=== PATIENT | female | born 1960 | race Caucasian/White ===

== ENCOUNTER 2017-12-08 05:23 | Day surgery (SDC) | payer BC ==
[~2017-12-08] VITALS: Ht 154.9 cm; Wt 74.8 kg
[~2017-12-08 05:23] MED LIST: BENTYL10 MG PO; BENZONATATE200 MG PO; BUPROPION HCL; BUPROPION HCL150 M2 PO; CELEXA10 M1 PO; CIPRO500 MG PO; CYMBALTA60 MG PO; DULOXETINE HCL60 MG PO; ENDOCET 5-3251 EACH PO; FISH OIL 1,0001 EACH PO; FLUOXETINE HCL20 MG; HYCODAN SYRUP480 ML PO; HYDROCHLOROTHIA25 MG; KEFLEX500 MG PO; PREDNISONE10 MG PO; PRILOSEC OTC20 MG PO; PRILOSEC40 MG PO; PROTONIX40 MG PO; TOPROL XL50 MG PO; TRAMADOL HCL50 MG PO; TYLENOL WITH C1 EACH PO; VITAMIN D1000 INTUN PO; VITAMIN D31000 UNIT PO; WELLBUTRIN100 MG PO; ZITHROMAX Z-PA250 MG PO; ZOFRAN ODT4 MG PO; ZOFRAN4 MG PO
[2017-12-08 06:07] VITALS: BP 120/65
[2017-12-08 08:49] VITALS: BP 114/65
[2017-12-08 09:30] VITALS: BP 124/64
== END 2017-12-08 09:35 | disposition home or self-care (01) ==
LOC: SDC 05:23
PROC: 0UDB8ZX Extraction of Endometrium, Via Natural or Artificial Opening Endoscopic, Diagnostic (ICD-10-PCS; principal; 2017-12-08)
DX: N85.00 Endometrial hyperplasia, unspecified (principal); Z85.3 Personal history of malignant neoplasm of breast; Z92.21 Personal history of antineoplastic chemotherapy; Z92.3 Personal history of irradiation; I34.8 Other nonrheumatic mitral valve disorders; R91.1 Solitary pulmonary nodule; K76.0 Fatty (change of) liver, not elsewhere classified; K21.9 Gastro-esophageal reflux disease without esophagitis; K58.9 Irritable bowel syndrome, unspecified; R73.01 Impaired fasting glucose; G89.29 Other chronic pain; R10.9 Unspecified abdominal pain; E78.5 Hyperlipidemia, unspecified; Z80.3 Family history of malignant neoplasm of breast; Z83.3 Family history of diabetes mellitus; Z83.49 Family history of other endocrine, nutritional and metabolic diseases; Z80.8 Family history of malignant neoplasm of other organs or systems; Z82.49 Family history of ischemic heart disease and other diseases of the circulatory system; Z88.6 Allergy status to analgesic agent
CPT/HCPCS: 88305; J0131; J0690; J1100; J1885; J2250; J2405; Q0175